=== PATIENT | male | born 1950 | race Caucasian/White ===

== ENCOUNTER 2016-09-18 03:41 | Emergency (ER) | payer MEDICARE, OTHER | END 2016-09-18 04:39 | disposition home or self-care (01) | LOC: ED 03:41 | DX: Z46.6 Encounter for fitting and adjustment of urinary device (principal); Z86.718 Personal history of other venous thrombosis and embolism; R01.1 Cardiac murmur, unspecified; Z79.899 Other long term (current) drug therapy; Z79.01 Long term (current) use of anticoagulants ==